=== PATIENT | male | born 1990 | race Caucasian/White ===

== ENCOUNTER 2017-11-25 00:31 | Emergency (ER) | payer OTHER ==
[~2017-11-25] VITALS: Ht 185.4 cm; Wt 227.0 kg
[~2017-11-25 00:31] MED LIST: HYDROCODONE/ACE1 TA2 PO; NAPROSYN375 MG PO
[2017-11-25 00:45] VITALS: Ht 185.4 cm; Wt 227.0 kg
[2017-11-25 04:00] LABS: BASOPHIL % 0.5 % (0-2); PLATELET COUNT 141 x10^3mcL (130-400); RED CELL DISTRIBUTION WIDTH 13.2 % (11.5-14.5)
[2017-11-25 04:13] LABS: CALCIUM 8.6 mg/dL (8.5-10.1); CARBON DIOXIDE 27.1 mmol/L (21-32); CHLORIDE SERUM 105 mmol/L (98-107); CREATININE SERUM 0.9 mg/dL (0.7-1.3); GFR1 > 60 mL/min; GLUCOSE SERUM 86 mg/dL (74-106); POTASSIUM SERUM 3.6 mmol/L (3.5-5.1); SODIUM SERUM 140 mmol/L (136-145)
[2017-11-25 04:19] LABS: ALBUMIN 3.9 g/dL (3.4-5.0); ALKALINE PHOSPHATASE 85 U/L (46-116); ALT/SGPT 140 U/L (16-63); AST/SGOT 90 U/L (15-37); BILIRUBIN TOTAL 0.5 mg/dL (0.20-1.00); MAGNESIUM 2.1 mg/dL (1.8-2.4); TOTAL PROTEIN, SERUM 7.5 g/dL (6.4-8.2)
[2017-11-25 05:28] VITALS: BP 150/87
== END 2017-11-25 05:28 | disposition home or self-care (01) ==
LOC: ED 00:31
PROVIDERS: Emergency Medicine
DX: R25.2 Cramp and spasm (principal)
CPT/HCPCS: 36415; Q0092

== ENCOUNTER 2017-11-29 22:59 | Emergency (ER) | payer OTHER ==
[~2017-11-29] VITALS: Ht 185.4 cm; Wt 226.8 kg
[2017-11-29 23:17] VITALS: Ht 185.4 cm; Wt 226.8 kg
[2017-11-30 02:21] VITALS: BP 164/95
== END 2017-11-30 02:22 | disposition home or self-care (01) ==
LOC: ED 22:59
DX: M79.651 Pain in right thigh (principal)

== ENCOUNTER 2017-12-23 03:38 | Emergency (ER) | payer OTHER ==
[~2017-12-23] VITALS: Ht 185.4 cm; Wt 222.1 kg
[2017-12-23 03:53] VITALS: Ht 185.4 cm; Wt 222.1 kg
[2017-12-23 07:45] VITALS: BP 142/88
== END 2017-12-23 07:45 | disposition home or self-care (01) ==
LOC: ED 03:38
DX: M25.561 Pain in right knee (principal)
CPT/HCPCS: J2270

== ENCOUNTER 2018-01-07 03:03 | Emergency (ER) | payer OTHER ==
[~2018-01-07] VITALS: Ht 185.4 cm; Wt 219.1 kg
[2018-01-07 03:08] VITALS: Ht 185.4 cm; Wt 219.1 kg
[2018-01-07 06:10] VITALS: BP 161/97
== END 2018-01-07 06:10 | disposition home or self-care (01) ==
LOC: ED 03:03
DX: M25.561 Pain in right knee (principal); Z91.041 Radiographic dye allergy status
CPT/HCPCS: J2270; Q0092